=== PATIENT | male | born 1970 | race Two or more races ===

== ENCOUNTER 2025-02-23 20:40 | Emergency (ER) | payer BC, SELFPAY ==
[2025-02-23 20:41] VITALS: BMI 31.5
[2025-02-23 20:46] VITALS: BP 197/100; PULSE 79; RESP 18; TEMP 36.7; O2SAT 98
--- NOTE | 2025-02-23 20:54 | EKG_ITS ---
[facility] Test Date: 2025-02-23 Pat Name: KIMBERLYN GREEN Department: Room: - Gender: Male Office Admin: : 1970 Requested By: Sundar Meneses Order Number: [id number] Reading MD: Sundar Meneses Measurements Intervals Victor Rate: 76 P: 30 OH: 184 QRS: -57 QRSD: 98 T: 33 QT: 359 QTc: 404 Interpretive Statements SINUS RHYTHM LEFT ANTERIOR FASCICULAR BLOCK [QRS AXIS <= -45, QR IN I, RS IN II] POSSIBLE ANTERIOR MYOCARDIAL INFARCTION , OF INDETERMINATE AGE [30 ms Q WAVE IN V3/V4, OR R < 0.2 mV IN V4] INFERIOR MYOCARDIAL INFARCTION , OF INDETERMINATE AGE [40+ ms Q WAVE AND/OR ST/T ABNORMALITY IN II/aVF] No previous ECG available for comparison /[id number]/[email or web address]/[id number].pdf
--- NOTE | 2025-02-23 20:54 | XR_ITS ---
Examination: PA chest single view Technique upright PA chest single view Date and time: February 23, 2025 2102 hours INDICATIONS: High blood pressure chest pain today. FINDINGS: Normal heart size. Lungs are clear. The osseous structures are intact IMPRESSION: No active disease
--- NOTE | 2025-02-23 20:54 | XR_ITS ---
Examination: CT brain head without contrast. 2-D sagittal coronal reconstructions Date and time of exam:February 23, 2025 2122 hours INDICATIONS: High blood pressure with headache today CTDI: vol (mGy):52.3 DLP: (mGycm):1169 Technique: Multiple CT axial sections of the brain have been obtained, 5 mm slice thickness. Contrast has not been administered. 2-D sagittal, coronal reconstructions have been obtained Low dose protocols were performed. One or more of the following dose reduction techniques were used; automated exposure control, adjustment of the mA and/or KV according to patient size, use of iterative reconstruction technique. Findings: No significant ventricular enlargement. Intra-axial or extra-axial hemorrhage density is not seen. No mass effect or midline shift Basal cisterns are not remarkable. Fourth ventricle is midline. Cranial vault intact. Impression: Negative for acute hemorrhage, mass effect or midline shift
[2025-02-23 21:15] VITALS: BP 197/100; PULSE 79
[2025-02-23 21:16] VITALS: BP 197/100; PULSE 79
[2025-02-23] MEDS: METOPROLOL TARTRATE 25 MG TABLET 50 MG PO (21:16)
[2025-02-23] MEDS: SODIUM CHLORIDE 0.9% 1000 ML 1,000 ML 999 ML IV (21:17)
[2025-02-23 21:27] LABS: Collection Type, Urine Clean Catch; Squamous Epithelial Cell,Urine 0 /hpf (0-5)
[2025-02-23 21:44] LABS: Basophils # (Auto) 0.1 Thou/mm3 (0.0-0.2); Basophils % (Auto) 1 % (0-2.5); Eosinophils # (Auto) 0.1 Thou/mm3 (0.0-0.5); Eosinophils % (Auto) 1 % (0-10); Hematocrit 49.8 % (41.0-53.0); Hemoglobin 16.7 g/dL (13.5-16.0); Immature Granulocytes Auto 0.02 Thou/mm3 (0.00-0.00); Lymphocytes # (Auto) 1.8 Thou/mm3 (1.0-4.8); Lymphocytes % (Auto) 20 % (10-50); Mean Corpuscular HGB Conc 33.5 g/dl (31.0-37.0); Mean Corpuscular Hemoglobin 30.1 pg (25.0-35.0); Mean Corpuscular Volume 90 fL (80-100); Monocytes # (Auto) 0.5 Thou/mm3 (0.0-0.8); Monocytes % (Auto) 5 % (0-12); Neutrophils # (Auto) 6.9 Thou/mm3 (1.8-7.7); Neutrophils % (Auto) 73 % (37-80); Nucleated Red Blood Cell # 0.00 Thou/mm3 (0.00-0.00); Nucleated Red Blood Cell % 0 /100 WBC (0); Platelet Count 298 Thou/mm3 (140-440); RDW Standard Deviation 41.1 fL (35.1-43.9); Red Blood Count 5.54 Miln/mm3 (4.50-5.90); White Blood Count 9.4 Thou/mm3 (3.8-10.6)
[2025-02-23 21:49] LABS: Bilirubin,Urine Negative (Negative); Blood,Urine Negative (Negative); Clarity,Urine Clear (Clear/Hazy); Color,Urine Lt-Yellow (Lt Yel-Yel); Glucose, Urine Negative (Negative); Ketones,Urine Negative (Negative); Leukocyte Esterase,Urine Negative (Negative); Nitrite,Urine Negative (Negative); PH,Urine 6.0 (5.0-7.0); Protein,Urine Negative (Neg - Trace); RBC,Urine 2 /hpf (0-3); Specific Gravity,Urine 1.023 (1.001-1.035); Urobilinogen,Urine Negative mg/dL (0.0-1.0); WBC,Urine < 1 /hpf (0-5)
[2025-02-23 21:54] LABS: Alanine Aminotransferase 12 U/L (10-49); Albumin, Serum 5.0 gm/dL (3.5-5.0); Albumin/Globulin Ratio 1.8 (1.2-2.2); Alkaline Phosphatase 56 U/L (46-116); Anion Gap 6 (7-16); Aspartate Amino Transferase 16 U/L (0-34); BUN/Creatinine Ratio 13 Ratio (12-20); Bilirubin,Direct 0.3 mg/dL (0.0-0.3); Bilirubin,Total 1.2 mg/dL (0.3-1.2); Blood Urea Nitrogen 14 mg/dL (9-23); Calcium 10.4 mg/dL (8.3-10.6); Calcium (Corrected) 10.4 mg/dL (8.5-10.1); Carbon Dioxide 28.7 mMol/L (20.0-31.0); Chloride 105 mMol/L (98-107); Creatinine (Component) 1.1 mg/dL (0.6-1.3); Estimated Creatinine Clearance 89.8 mL/min (>60); Free T4 (Free Thyroxine) 1.38 ng/dL (0.89-1.76); Globulin 2.8 gm/dL (2.3-3.5); Glucose 106 mg/dL (74-106); Magnesium 2.1 mg/dL (1.6-2.6); Osmolality,Calculated 279 (275-295); Potassium 3.8 mMol/L (3.4-5.1); Sodium 140 mMol/L (136-145); Thyroid Stimulating Hormone 2.16 uIU/mL (0.55-4.78); Total Protein 7.8 gm/dL (5.7-8.2); Troponin I < 0.020 ng/mL (0.0-0.045); eGFR > 60 See Note
--- NOTE | 2025-02-23 21:58 | PD.EDADULT ---
ED General RME/HPI General Chief complaint: General Adult/Misc Complain Stated complaint: ANXIETY Time Seen by Provider: 02/23/25 21:28 Arrival date/time: 02/23/25 20:40 RME / HPI RME / HPI narrative: This section includes all my notes and documentations, including HPI, PE, and ED course. Sundar Donald MD HPI: 54 y/o male with Hx of HTN presents with elevated blood pressure at home, feeling anxious, and inability to sleep. And not feeling right but he has trouble describing further. No headache or dizziness. No speech or visual impairment. No numbness or tingling. No chest pain or shortness of breath. No loss of power in arms or legs. No other complaints. ROS: All negative except as documented in HPI. Physical Exam: General: Alert and oriented. Appears severely anxious. High BP noted. Eyes: Conjunctivae and lids clear. ENT: No nasal congestion. Neck: Supple. No carotid bruit. No JVD. Heart: RRR. Lungs: No respiratory distress. Good air movement. No rhonchi, wheezing, rales. Abdomen: Soft and nontender. Normal bowel sounds. No distension. No rebound or guarding. Back: No CVA tenderness. Skin: Warm and dry. Neuro: Alert and oriented X 3. Cranial nerves II to XII grossly normal. No bruit no peripheral motor deficits. I reviewed all diagnostic test results: My interpretation of the EKG is: Sinus rhythm (76 bpm) with nonspecific ST-T changes. My interpretation of the chest x-ray is: NAD. My review of the Head/Brain CT report is: NAD. Blood tests and urine tests unremarkable. At this point, diagnoses include: Hypertension. Treatment here included: Xanax 0.5 mg, Catapres 0.2 mg, IVF, Lopressor 50 mg. Significant improvement noted. Recommended outpatient care. Based on my best medical judgment, made decision no further evaluation or treatment indicated at this time. Patient understands and agrees to the discharge instructions customized and printed, see below. Discharge Instructions from Dr. Donald printed for you: 1. After extensive evaluation, there is no life-threatening condition. Such as stroke or heart attack. 2. But we need to lower BP to prevent future heart attacks and strokes. 3. Take Clonidine 0.1 mg pill(s) every 12 hours as needed based on SBP (higher number of BP). SBP > 140, take one pill. SBP > 160, take two pills. SBP > 180, take three pills. SBP > 200, take four pills. 4. Xanax at bedtime as needed. Only take this 2-3 times per week to avoid dependence. 5. See a private doctor on 02/27/2025 for recheck and further care. Ask to review all test results and official radiology reports, to make sure you receive all necessary follow-ups and monitoring. 6. Seek immediate medical care with worsening or with any concerns. Sundar Donald MD Related Data Home Medications ?Medication ?Instructions ?Recorded ?Confirmed pantoprazole 40 mg tablet,delayed 40 mg PO QDAY 11/13/21 11/13/21 release Previous Rx's ?Medication ?Instructions ?Recorded metoclopramide HCl 10 mg tablet 10 mg PO Q12H #60 tabs 11/13/21 (Reglan) alprazolam 0.5 mg tablet (Xanax) 0.5 mg PO HS PRN Insomnia #10 tabs 02/23/25 clonidine HCl 0.1 mg tablet 0.1 mg PO BID #60 tabs 02/23/25 Allergies Allergy/AdvReac Type Severity Reaction Status Date / Time No Known Allergies Allergy Verified 11/13/21 12:41 Review of Systems Review of Systems Systems Reviewed: All systems reviewed, normal except as documented Past Medical History Past Medical History CARDIAC: Positive Cardiac Disorders and Hypertension (Currently not taking medications as it was dropping too low being monitored) GASTROINTESTINAL: Positive Gastrointestinal Disorders (Dysphagia) and Gastroesophageal Reflux Disease Social History SMOKING STATUS: Former smoker ED Exam Narrative Physical exam: Refer to HPI above Course Course Course Narrative: CXR is ordered for determining the etiology of shortness of breath. Quality Measures none Orders Category Date Time Status EKG (ED ONLY) *Do not use* NOW Care 02/23/25 20:54 Completed Saline [Insert IV] NOW Care 02/23/25 20:[address] head/brain wo con Stat Exams 02/23/25 20:54 Completed EKG (ED Only) Stat Exams 02/23/25 20:54 Draft XR chest 1V portable Stat Exams 02/23/25 20:54 Completed BNP [B-Type Natriuretic Peptide] Stat Lab 02/23/25 21:15 Completed Bilirubin,Direct Stat Lab 02/23/25 21:15 Completed CBC Stat Lab 02/23/25 21:15 Completed CMP [Comprehensive Metabolic Panel] Stat Lab 02/23/25 21:15 Completed Free T4 (Free Thyroxine) Stat Lab 02/23/25 21:15 Completed Magnesium Stat Lab 02/23/25 21:15 Completed TSH [Thyroid Stimulating Hormone] Stat Lab 02/23/25 21:15 Completed Troponin I Stat Lab 02/23/25 21:15 Completed UA [Urinalysis] Stat Lab 02/23/25 21:15 Completed ALPRazoLAM [Xanax] Med 02/23/25 20:53 Discontinued 0.5 mg PO X1 ONE Metoprolol Tartrate [Lopressor] Med 02/23/25 20:53 Discontinued 50 mg PO X1 ONE Sodium Chloride 0.9% 1000 ml [Ns] 1,000 ml Med 02/23/25 20:53 Discontinued IV 999 mls/hr cloNIDine HCL [Catapres] Med 02/23/25 20:53 Discontinued 0.2 mg PO X1 ONE Vital Signs Vital signs: Vital Signs Temperature 98.1 F 02/23/25 20:46 Pulse Rate 79 02/23/25 20:46 Respiratory Rate 18 02/23/25 20:46 Blood Pressure 197/100 H 02/23/25 20:46 Pulse Oximetry (%) 98 02/23/25 20:46 Oxygen Delivery Method Room Air 02/23/25 20:46 Discharge Plan Plan Patient Disposition: HOME (Self Care) Prescriptions/Referrals Prescriptions/Med Rec: New clonidine HCl 0.1 mg tablet 0.1 mg PO BID Qty: 60 0RF alprazolam [Xanax] 0.5 mg tablet 0.5 mg PO HS PRN (Reason: Insomnia) Qty: 10 0RF No Action pantoprazole 40 mg tablet,delayed release (DR/EC) 40 mg PO QDAY metoclopramide HCl [Reglan] 10 mg Tablet 10 mg PO Q12H Qty: 60 2RF Rx Instructions: Take 1 tablet by mouth twice daily Referrals: Temporary Provider,ED [Physician] - In 1 week Problem List Clinical Impression: Hypertension Patient/Caregiver Discharge Instructions Discharge Activity: activity as tolerated Education Materials: ED Hypertension, Established Additional Instructions: Discharge Instructions from Dr. Donald printed for you: 1. After extensive evaluation, there is no life-threatening condition. Such as stroke or heart attack. 2. But we need to lower BP to prevent future heart attacks and strokes. 3. Take Clonidine 0.1 mg pill(s) every 12 hours as needed based on SBP (higher number of BP). SBP > 140, take one pill. SBP > 160, take two pills. SBP > 180, take three pills. SBP > 200, take four pills. 4. Xanax at bedtime as needed. Only take this 2-3 times per week to avoid dependence. 5. See a private doctor on 02/27/2025 for recheck and further care. Ask to review all test results and official radiology reports, to make sure you receive all necessary follow-ups and monitoring. 6. Seek immediate medical care with worsening or with any concerns. Print Language: Sami Stand Alone Forms: Mireya Award Info., Patient Portal Info Letter MDM Narrative [facility] hospital course: Scribe Attestation: I, Maria Dolores Bryan, am scribing for and in the presence of Dr. Donald. Provider Notation: Although this document has been carefully reviewed, there may still be some phonetic and other typographical errors.? These errors are purely grammatical due to imperfections in the software program and should not be construed in any way to? compromise the substance of the patient's medical care during this visit. 54 y/o male with Hx of HTN presents with elevated blood pressure at home, feeling anxious, and inability to sleep. And not feeling right but he has trouble describing further. No headache or dizziness. No speech or visual impairment. No numbness or tingling. No chest pain or shortness of breath. No loss of power in arms or legs. No other complaints. Clinical Information Provided by patient Medical Records Reviewed [facility] Reviewed prior ED records from 01/14/23. Patient was seen for [place] injury to finger. Meds/Rx Considered, not Ordered None Labs/Rad/Tests considered, not Ordered None Chronic Illness/Social Conditions which may negatively complicate care or outcome(s)-explain: None or not applicable EKG EKG Interpretation narrative: My interpretation of the EKG is: Sinus rhythm (76 bpm) with nonspecific ST-T changes. Sundar Donald MD Lab Interpretation Labs: interpreted by me and see narrative above Lab(s) interpretation(s): I reviewed all diagnostic test results: My interpretation of the EKG is: Sinus rhythm (76 bpm) with nonspecific ST-T changes. My interpretation of the chest x-ray is: NAD. My review of the Head/Brain CT report is: NAD. Blood tests and urine tests unremarkable. Imaging Imaging interpretation: interpreted by me and see narrative above Radiology reports / interpretation(s): I reviewed all diagnostic test results: My interpretation of the EKG is: Sinus rhythm (76 bpm) with nonspecific ST-T changes. My interpretation of the chest x-ray is: NAD. My review of the Head/Brain CT report is: NAD. Blood tests and urine tests unremarkable. Medication Administration(s) Medication Administration History Discontinued Medications Alprazolam (Alprazolam 0.25 Mg Tablet) 0.5 mg PO X1 ONE Stop: 02/23/25 20:54 Last Admin: 02/23/25 21:15 Dose: 0.5 mg Documented By: JESSICA Clonidine (Clonidine Hcl 0.1 Mg Tablet) 0.2 mg PO X1 ONE Stop: 02/23/25 20:54 Last Admin: 02/23/25 21:15 Dose: 0.2 mg Documented By: JESSICA Sodium Chloride (Ns) 1,000 mls @ 999 mls/hr IV .Q1H1M ONE Stop: 02/23/25 21:53 Last Infusion: 02/23/25 22:32 Dose: Infused Documented By: Admin: 02/23/25 21:17 Dose: 999 mls/hr Documented By: JESSICA Metoprolol Tartrate (Metoprolol Tartrate 25 Mg Tablet) 50 mg PO X1 ONE Stop: 02/23/25 20:54 Last Admin: 02/23/25 21:16 Dose: 50 mg Documented By: EE Xanax 0.5 mg, Catapres 0.2 mg, IVF, Lopressor 50 mg. Diagnosis Differential diagnosis: renal artery stenosis, primary aldosteronism, renal parenchymal disease Most likely dx, and/or detailed dx discussion: Hypertension Dispositon Disposition: Discharge Home
[2025-02-23 22:03] VITALS: BP 125/86
[2025-02-23 22:10] LABS: B-Type Natriuretic Peptide < 20 pg/mL (0-100)
== END 2025-02-23 22:33 | disposition home or self-care (01) ==
PROVIDERS: Emergency Provider Emergency Medicine; PCP Family Medicine
DX: I10 Essential (primary) hypertension (principal); R06.02 Shortness of breath; R07.9 Chest pain, unspecified; R51.9 Headache, unspecified; Z87.891 Personal history of nicotine dependence
CPT/HCPCS: 36415; 70450; 71045; 80053; 81001; 82248; 83735; 83880; 84439; 84443; 84484; 85025; 93005; 96360; 96372; 99283; J7030; A9270